=== PATIENT | female | born 1965 | race Caucasian/White ===

== ENCOUNTER 2017-06-14 12:04 | Emergency (ER) | payer MEDICARE ==
[2017-06-14] MEDS ORDERED: IPRATROPIUM/ALBUTEROL 0.5-2.5 MG/3 ML AMPUL NEB ONE (12:52)
--- NOTE | 2017-06-14 12:58 | ER Document Report ---
HPI - HPI Pain Level: 3 Notes: Patient is a 51-year-old female with a history of insulin-dependent diabetes, COPD, and hypertension who presents to the ED complaining of dry semi- productive cough, intermittent "mild" wheeze, nasal congestion/discharge x 2 weeks. Patient states that she did recently moved to the area and does need her NovoLog pen prescription refilled. Patient states that she has been feeling well otherwise. She is eating and drinking without difficulty. She is urinating normally and having normal bowel movements. Patient states that she is ambulatory without any dyspnea on exertion or any development of chest pains. Patient does have a Combivent inhaler at home which she has not been using. She has no other concerns or complaints at this time. Denies any headache, fever, neck pain, sore throat, chest pain, palpitations, syncope, shortness of breath, dyspnea, abdominal pain, nausea/vomiting/diarrhea, urinary retention, dysuria, hematuria, loss of control of bowel or bladder, numbness/ tingling, muscle paralysis/weakness, or rash. - ROS Systems Reviewed and Negative: Yes All other systems reviewed and negative - CONSTITUTIONAL Constitutional: DENIES: Fever, Chills - NEURO Neurology: REPORTS: Headache - RESPIRATORY Respiratory: REPORTS: Trouble Breathing - short of breath, Coughing Past Medical History - Social History Smoking Status: Current Every Day Smoker Chew tobacco use (# tins/day): No Frequency of alcohol use: Rare Drug Abuse: None Family History: Reviewed & Not Pertinent Patient has suicidal ideation: No Patient has homicidal ideation: No - Past Medical History Cardiac Medical History: Reports: Hx Congestive Heart Failure, Hx Hypertension Pulmonary Medical History: Reports: Hx Asthma, Hx COPD Endocrine Medical History: Reports: Hx Diabetes Mellitus Type 2 Renal/ Medical History: Denies: Hx Peritoneal Dialysis Psychiatric Medical History: Reports: Hx Depression Past Surgical History: Reports: Hx Hysterectomy Vertical Provider Document - CONSTITUTIONAL Agree With Documented VS: Yes Notes: PHYSICAL EXAMINATION: GENERAL: Well-appearing, well-nourished and in no acute distress. A&Ox4 HEAD: Atraumatic, normocephalic. EYES: Pupils equal round and reactive to light, extraocular movements intact, sclera anicteric, conjunctiva are normal. ENT: EAC clear b/l. TM's intact b/l without erythema, fluid, or perforation. Nares patent and without discharge. oropharynx mild erythema without exudates. 1+ tonsilar hypertrophy without erythema or exudate. No palatine shift. Uvula midline. No tongue protrusion. No drooling, hoarseness, or airway compromise. Moist mucous membranes. No sinus tenderness. NECK: Normal range of motion, supple without lymphadenopathy. No rigidity/ meningismus. LUNGS: scant b/l wheeze at lung base. no retractions, tachypnea, or hypoxia. HEART: Regular rate and rhythm without murmurs, rubs, gallops. ABDOMEN: Soft, nontender, nondistended abdomen. No guarding, no rebound. No masses appreciated. Normal bowel sounds present. No CVA tenderness bilaterally. NEUROLOGICAL: Normal speech, normal gait. Normal sensory, motor exams PSYCH: Normal mood, normal affect. SKIN: Warm, Dry, normal turgor, no rashes or lesions noted. - RESPIRATORY O2 Sat by Pulse Oximetry: 95 Course - Re-evaluation Re-evalutation: 06/14/17 13:25 Patient is an afebrile, well-hydrated, 51-year-old female who presents the ED with pneumonitis. Vitals are stable. PE is otherwise unremarkable. Patient has a history of COPD and diabetes. Chest x-ray was unremarkable for any acute pathology. Patient was given a breathing treatment which improved lung sounds. I will send her home with a Rx for zithromax as she cannot take levaquin. Conservative measures for symptoms otherwise. Low suspicion for any ACS, PE, pneumothorax, pericarditis, dissection, respiratory compromise, severe dehydration, sepsis, meningitis, or other systemic emergent condition at this time. Patient is aware that her condition can change from initial presentation and she needs to monitor symptoms closely and seek medical attention for any acute changes. Recommend conservative measures for symptoms. Recheck with your PCM in 3-5 days. Return to the ED with any worsening/concerning symptoms otherwise as reviewed in discharge. Patient is in agreement. NovoLog prescription refilled. - Vital Signs Vital signs: Temp Pulse Resp BP Pulse Ox 98.4 F 91 16 117/72 95 06/14/17 12:10 06/14/17 12:10 06/14/17 12:10 06/14/17 12:10 06/14/17 12:10 Discharge - Discharge Clinical Impression: Pneumonitis Condition: Stable Disposition: HOME, SELF-CARE Instructions: Family Physicians / Practices, Pneumonia ([facility]) Additional Instructions: Maintain adequate fluid intake Take meds as directed tylenol/ibuprofen as needed over the counter cold medication as needed for symptoms Humidified air may help F/u: with your PCM in 3-5 days for a recheck Return to the ED with any fever, worsening pain, chest pain, palpitations, syncope, worsening VILLA, neck pain/stiffness, shortness of breath, wheezing, drooling, trouble swallowing/breathing, abdominal pain, n/v/d, rash, or worsening/concerning symptoms otherwise. Prescriptions: Albuterol Sulfate [Proair HFA Inhalation Aerosol 8.5 gm MDI] 2 puff IH Q4H PRN # 1 mdi PRN Reason: Azithromycin [Zithromax 250 mg Tablet] 250 mg PO ASDIR PRN #6 tablet PRN Reason: Insulin Aspart [Novolog Flexpen] 10 unit SQ TID #1 ml Forms: Smoking Cessation Education Referrals: [facility] [Provider Group] - Follow up as needed [facility] [Provider Group] - Follow up as needed
--- NOTE | 2017-06-14 13:12 | RADIOLOGY REPORT (SQ) ---
EXAM DESCRIPTION: CHEST PA/LAT COMPLETED DATE/TIME: 06/14/2017 1:04 pm REASON FOR STUDY: cough, wheeze COMPARISON: None. EXAM PARAMETERS: NUMBER OF VIEWS: two views TECHNIQUE: Digital Frontal and Lateral radiographic views of the chest acquired. RADIATION DOSE: NA LIMITATIONS: Poor inspiration FINDINGS: LUNGS AND PLEURA: Increased interstitial densities left greater than right suggesting inte rstitial pneumonitis probably viral. Lungs are otherwise clear. No effusions. MEDIASTINUM AND HILAR STRUCTURES: No masses or contour abnormalities. HEART AND VASCULAR STRUCTURES: Heart normal size. No evidence for failure. BONES: No acute findings. HARDWARE: Postoperative changes in lower cervical spine OTHER: No other significant finding. IMPRESSION: Increased interstitial densities primarily on the left suggesting interstitial pneumonit is. TECHNICAL DOCUMENTATION: JOB ID: [id number] [employer]- All Rights Reserved
[2017-06-14 13:52] VITALS: BP 110/70
== END 2017-06-14 13:46 | disposition home or self-care (01) ==
LOC: ER 12:04
DX: J44.0 Chronic obstructive pulmonary disease with (acute) lower respiratory infection (principal); J18.9 Pneumonia, unspecified organism; R05 Cough; J35.1 Hypertrophy of tonsils; I10 Essential (primary) hypertension; R51 Headache; F17.200 Nicotine dependence, unspecified, uncomplicated; E11.9 Type 2 diabetes mellitus without complications; Z79.4 Long term (current) use of insulin
CPT/HCPCS: 94640; 99283; 71046; A9270; J7620

== ENCOUNTER 2017-06-19 19:36 | Emergency (ER) | payer MEDICARE ==
--- NOTE | 2017-06-19 21:24 | RADIOLOGY REPORT (SQ) ---
EXAM DESCRIPTION: CHEST PA/LAT COMPLETED DATE/TIME: 06/19/2017 9:07 pm REASON FOR STUDY: diagnosed pneumonia wednesday COMPARISON: 06/14/2017 EXAM PARAMETERS: NUMBER OF VIEWS: two views TECHNIQUE: Digital Frontal and Lateral radiographic views of the chest acquired. RADIATION DOSE: NA LIMITATIONS: none FINDINGS: LUNGS AND PLEURA: Stable pulmonary exam, again demonstrating mildly increased interstitial markings involving the lung bases. No new focal consolidation. No pneumothorax. No pleural effusi on. MEDIASTINUM AND HILAR STRUCTURES: No masses or contour abnormalities. HEART AND VASCULAR STRUCTURES: Heart normal size. No evidence for failure. BONES: No acute findings. HARDWARE: Partially imaged ACDF hardware. OTHER: No other significant finding. IMPRESSION: Stable pulmonary exam, again demonstrating mildly increased interstitial markings involv ing the left more so than right lung bases. No evidence of adverse trend. TECHNICAL DOCUMENTATION: JOB ID: [id number] [employer]- All Rights Reserved
--- NOTE | 2017-06-19 21:45 | ER Document Report ---
ED Respiratory Problem - General Chief Complaint: Cough Stated Complaint: COUGH Time Seen by Provider: 06/19/17 20:12 Mode of Arrival: Ambulatory Information source: Patient Notes: 51-year-old female presented to ED for cough congestion. She states she was seen in on Wednesday and diagnosed with pneumonia and given antibiotics. She states she finished her antibiotics and still feels the same. She states she has a productive cough with mucus. She is alert and oriented respirations are regular and even speak in full complete sentences. Her O2 sat is 98% and heart rate is 79 when I assessed her she was given a Z-Froy when she was here on Wednesday. Her x-ray showed a viral pneumonitis on Wednesday. TRAVEL OUTSIDE OF THE [place] IN LAST 30 DAYS: No - HPI Patient complains to provider of: Cough, Short of breath, Other - She has a history of CHF and has gained a lot of weight since Wednesday. She states she has pedal edema but no edema noted Onset: Last week Duration: Continuous Initiating Event: URI Quality of pain: Achy Pain Level: 2 Context: Hx asthma, Hx CHF, Smoker Cough: Nonproductive Sputum amount: None At home treatment: Bronchodilators Associated symptoms: Congestion, Cough, PND, Runny nose, Sinus pain/pressure, Other - She states she feels like her feet and ankles are swollen and she feels like when she had CHF before Similar symptoms previously: Yes Recently seen / treated by doctor: Yes - Related Data Allergies/Adverse Reactions: amoxicillin [From Augmentin] Allergy (Verified 06/19/17 19:37) ciprofloxacin [From Cipro] Allergy (Verified 06/14/17 12:07) clavulanic acid [From Augmentin] Allergy (Verified 06/19/17 19:37) lithium Allergy (Verified 06/14/17 12:07) metformin Allergy (Verified 06/14/17 12:07) naproxen Allergy (Verified 06/14/17 12:07) simvastatin [From Zocor] Allergy (Verified 06/14/17 12:07) Past Medical History - General Information source: Patient - Social History Smoking Status: Current Every Day Smoker Cigarette use (# per day): Yes Chew tobacco use (# tins/day): No Smoking Education Provided: Yes - 4 minutes Frequency of alcohol use: Rare Drug Abuse: None Family History: Reviewed & Not Pertinent Patient has suicidal ideation: No Patient has homicidal ideation: No - Past Medical History Cardiac Medical History: Reports: Hx Congestive Heart Failure, Hx Hypertension Pulmonary Medical History: Reports: Hx Asthma, Hx COPD, Hx Pneumonia EENT Medical History: Reports: None Neurological Medical History: Reports: None Endocrine Medical History: Reports: Hx Diabetes Mellitus Type 2 Renal/ Medical History: Reports: None Malignancy Medical History: Reports: None GI Medical History: Reports: None Musculoskeltal Medical History: Reports Hx Arthritis, Reports Hx Fibromyalgia, Reports Hx Musculoskeletal Deformity, Reports Hx Musculoskeletal Trauma Skin Medical History: Reports None Psychiatric Medical History: Reports: Hx Depression Traumatic Medical History: Reports: None Infectious Medical History: Reports: None Past Surgical History: Reports: Hx Hysterectomy, Hx Orthopedic Surgery - cervical fusion, carpal and cubital tunnel release Review of Systems - Review of Systems Constitutional: No symptoms reported EENT: No symptoms reported Cardiovascular: Edema - Pedal edema Respiratory: Cough, Short of breath Gastrointestinal: No symptoms reported Genitourinary: No symptoms reported Female Genitourinary: No symptoms reported Musculoskeletal: No symptoms reported Skin: No symptoms reported Hematologic/Lymphatic: No symptoms reported Neurological/Psychological: No symptoms reported -: Yes All other systems reviewed and negative Physical Exam - Vital signs Vitals: Temp Pulse Resp BP Pulse Ox 97.9 F 75 18 154/84 H 97 06/19/17 19:45 06/19/17 19:45 06/19/17 19:45 06/19/17 19:45 06/19/17 19:45 Interpretation: Normal - General General appearance: Appears well, Alert - HEENT Head: Normocephalic, Atraumatic Eyes: Normal Pupils: PERRL Ears: Normal External canal: Normal Tympanic membrane: Normal Nasal: Purulent discharge, Swelling Mouth/Lips: Normal Mucous membranes: Normal Pharynx: Post nasal drainage Neck: Normal - Respiratory Respiratory status: No respiratory distress. No: Respiratory distress, Tachypnea Chest status: Nontender Breath sounds: Nonproductive cough. No: Productive cough, Rales, Rhonchi, Stridor, Wheezing Chest palpation: Normal - Cardiovascular Rhythm: Regular Heart sounds: Normal auscultation Murmur: No - Abdominal Inspection: Normal Distension: No distension Bowel sounds: Normal Tenderness: Nontender Organomegaly: No organomegaly - Back Back: Normal, Nontender - Extremities General upper extremity: Normal inspection, Nontender, Normal color, Normal ROM , Normal temperature General lower extremity: Normal inspection, Nontender, Normal color, Normal ROM , Normal temperature, Normal weight bearing. No: Sirisha's sign Ankle: Normal, Nontender. No: Edema Foot: Normal, Nontender. No: Edema - Neurological Neuro grossly intact: Yes Cognition: Normal Orientation: AAOx4 [place] Coma Scale Eye Opening: Spontaneous Jhonny Coma Scale Verbal: Oriented Jhonny Coma Scale Motor: Obeys Commands [place] Coma Scale Total: 15 Speech: Normal Motor strength normal: LUE, RUE, LLE, RLE Sensory: Normal - Psychological Associated symptoms: Normal affect, Normal mood - Skin Skin Temperature: Warm Skin Moisture: Dry Skin Color: Normal Course - Re-evaluation Re-evalutation: 06/20/17 00:27 Chest x-ray shows a pneumonitis viral, shows a normal sized heart no signs or symptoms of congestive heart failure. There is no swelling to the hands feet arms or legs. Lungs are clear to auscultation no signs or symptoms of CHF. Patient is an obese woman - Vital Signs Vital signs: Temp Pulse Resp BP Pulse Ox 98.3 F 72 20 150/80 H 98 06/19/17 21:59 06/19/17 21:59 06/19/17 21:59 06/19/17 21:59 06/19/17 21:59 - Diagnostic Test Radiology reviewed: Image reviewed, Reports reviewed Discharge - Discharge Clinical Impression: Pneumonitis High blood pressure Qualifiers: Hypertension type: unspecified Qualified Code(s): I10 - Essential (primary) hypertension Condition: Stable Disposition: HOME, SELF-CARE Instructions: Family Physicians / Practices Additional Instructions: You have been diagnosed with pneumonitis Overview Pneumonitis ([id number]-AGR-[id number]) is a general term that refers to inflammation of lung tissue. Technically, pneumonia is a type of pneumonitis because the infection causes inflammation. Pneumonitis, however, is usually used by doctors to refer to noninfectious causes of lung inflammation. Common causes of pneumonitis include airborne irritants at your job or from your hobbies. In addition, some types of cancer treatments and dozens of drugs can cause pneumonitis. Difficulty breathing often accompanied by a dry (nonproductive) cough is the most common symptom of pneumonitis. Specialized tests are necessary to make a diagnosis. Treatment focuses on avoiding irritants and reducing inflammation. Symptoms The most common symptom of pneumonitis is shortness of breath, which may be accompanied by a dry cough. If pneumonitis is undetected or left untreated, you may gradually develop chronic pneumonitis, which can result in scarring ( fibrosis) in the lungs. Signs and symptoms of chronic pneumonitis include: * Shortness of breath * Cough * Fatigue * Loss of appetite * Unintentional weight loss When to call a doctor Call your doctor anytime you have difficulty breathing, no matter what might be the cause. Request an Appointment at [facility] Causes * Bronchioles and alveoli in the lungs Pneumonitis occurs when an irritating substance causes the tiny air sacs ( alveoli) in your lungs to become inflamed. This inflammation makes it difficult for oxygen to pass through the alveoli into the bloodstream. Many irritants, ranging from airborne molds to chemotherapy drugs, have been linked to pneumonitis. But for most people, the specific substance causing the inflammation is never identified. Pneumonitis causes may include: * Drugs. A variety of drugs can cause pneumonitis, including some antibiotics, several types of chemotherapy drugs and medications that keep your heartbeat regular. An overdose of aspirin can cause pneumonitis. * Molds and bacteria. Repeated exposure to some molds and bacteria can cause the lungs to become inflamed. Specific varieties of mold-related pneumonitis have received nicknames, such as "quiroz's lung" or "hot tub lung." * Birds. Exposure to feathers or bird excrement is a common cause of pneumonitis. * Radiation treatments. Some people who undergo radiation therapy to the chest, such as for breast or lung cancer, may develop pneumonitis. Pneumonitis also can occur after whole-body radiation therapy, which is needed to prepare a person for a bone marrow transplant. Risk factors Occupations or hobbies Some occupations and hobbies carry higher risks of pneumonitis, including: * Farming. Many types of farming operations expose workers to aerosolized mists and pesticides. Inhaling airborne particles from moldy hay is one of the most common causes of occupational pneumonitis. Mold particles also can be inhaled during harvests of grain and hay. * Bird handling. Poultry workers and people who breed or keep pigeons are often exposed to droppings, feathers and other materials that can cause pneumonitis. * Hot tubs and humidifiers. Moldy conditions in hot tubs can trigger pneumonitis because the bubbling action makes a mist that can be inhaled. Home humidifiers are another common reservoir for mold. Cancer treatment Some chemotherapy drugs can cause pneumonitis, as can radiation therapy to the lungs. The combination of the two increases the risk of irreversible lung disease. Complications Pneumonitis that goes unnoticed or untreated can cause irreversible lung damage. In normal lungs, the air sacs stretch and relax with each breath. Chronic inflammation of the thin tissue lining each air sac causes scarring and makes the sacs less flexible. They become stiff like a dried sponge. This is called pulmonary fibrosis. In severe cases, pulmonary fibrosis can cause right heart failure, respiratory failure and . [id number] cough and cold medicine Tylenol and Motrin as needed Keep your air humidified Maintain adequate fluid by mouth Follow-up with your primary doctor in the next 3-5 days. COUGH-SUPPRESSANT & EXPECTORANT MEDICATION: You are to use a cough medication as needed for relief of symptoms. This medicine is a combination of an expectorant (to make the mucous thinner and more easily "coughed up") and a cough suppressant (to reduce the frequency of coughing). The cough-suppressant medicine is related to narcotics. You may experience mild nausea and sleepiness. Some patients who are very sensitive to narcotics may have stomach pain from this medicine. Taking the medicine with food reduces these side effects. Do not drive or work with machinery until you know how this medicine affects you. The expectorant should have no side effects. Iodine-containing expectorants (such as organidin) should not be taken by persons with active thyroid disease unless approved by your doctor. Call the doctor if you develop shortness of breath, hives, rash, itching, lightheadedness, or severe nausea and vomiting. USE OF ACETAMINOPHEN (Tylenol): Acetaminophen may be taken for pain relief or fever control. It's much safer than aspirin, offering a wider range of "safe" dosages. It is safe during . Some brand names are Tylenol, Panadol, Datril, Anacin 3, Tempra, and Liquiprin. Acetaminophen can be repeated every four hours. The following are maximum recommended dosages: >89 pounds or adults 650 mg to 900 mg Acetaminophen can be repeated every four hours. Maximum dose not to exceed 4000 mg a day. SMOKING: If you smoke, you should stop smoking. The tar and chemicals in cigarette smoke are harmful. Smoking has been shown to cause: emphysema chronic bronchitis lung cancer mouth and throat cancer stomach and pancreas cancer premature aging defects In addition, smoking increases ear and lung infections in children of smokers. FOLLOW-UP CARE: If you have been referred to a physician for follow-up care, call the physician s office for an appointment as you were instructed or within the next two days. If you experience worsening or a significant change in your symptoms, notify the physician immediately or return to the Emergency Department at any time for re-evaluation. Forms: Elevated Blood Pressure, Smoking Cessation Education, Return to Work
[2017-06-19 22:00] VITALS: BP 150/80
== END 2017-06-19 21:59 | disposition home or self-care (01) ==
LOC: ER 19:36
DX: J18.9 Pneumonia, unspecified organism (principal); I10 Essential (primary) hypertension; R05 Cough; R09.81 Nasal congestion; R06.02 Shortness of breath; I50.9 Heart failure, unspecified; R09.89 Other specified symptoms and signs involving the circulatory and respiratory systems; F17.210 Nicotine dependence, cigarettes, uncomplicated
CPT/HCPCS: 71046; 99283

== ENCOUNTER 2017-07-23 12:37 | Emergency (ER) | payer MEDICARE ==
[2017-07-23] MEDS ORDERED: ONDANSETRON 4 MG TAB.RAPDIS PO ONE (12:46)
[2017-07-23] MEDS ORDERED: TRAMADOL HCL 50 MG TABLET PO ONE (12:46)
--- NOTE | 2017-07-23 12:48 | ER Document Report ---
ED Medical Screen (RME) - General Chief Complaint: Abdominal Pain Stated Complaint: ABDOMINAL PAIN Time Seen by Provider: 07/23/17 12:42 Notes: RME DISCLOSURE I have seen this patient as part of a Rapid Medical Evaluation and, if applicable, placed any initially appropriate orders. The patient will be seen and fully evaluated, including a full history and physical exam, by a provider ( in Main ED or Fast Track) when a room becomes available. 51-year-old female here with complaints of upper and right-sided abdominal pain. The pain has been ongoing for about 6 months now but she states that over the past 2-3 weeks, the pain has been progressively worsening and is associated with nausea vomiting and looser than normal stools. The pain is worse after eating. She has tried ibuprofen for the pain. EXAM Moderate right upper quadrant tenderness Minimal epigastric/RLQ tenderness No peritoneal signs TRAVEL OUTSIDE OF THE [place] IN LAST 30 DAYS: No - Related Data Allergies/Adverse Reactions: amoxicillin [From Augmentin] Allergy (Verified 07/23/17 12:47) ciprofloxacin [From Cipro] Allergy (Verified 07/23/17 12:47) clavulanic acid [From Augmentin] Allergy (Verified 07/23/17 12:47) lithium Allergy (Verified 07/23/17 12:47) metformin Allergy (Verified 07/23/17 12:47) naproxen Allergy (Verified 07/23/17 12:47) simvastatin [From Zocor] Allergy (Verified 07/23/17 12:47) Past Medical History - Social History Chew tobacco use (# tins/day): No Frequency of alcohol use: None Drug Abuse: None - Past Medical History Cardiac Medical History: Reports: Hx Congestive Heart Failure, Hx Hypertension Pulmonary Medical History: Reports: Hx Asthma, Hx COPD, Hx Pneumonia Endocrine Medical History: Reports: Hx Diabetes Mellitus Type 2 Renal/ Medical History: Denies: Hx Peritoneal Dialysis Musculoskeltal Medical History: Reports Hx Arthritis, Reports Hx Fibromyalgia, Reports Hx Musculoskeletal Deformity, Reports Hx Musculoskeletal Trauma Psychiatric Medical History: Reports: Hx Depression Past Surgical History: Reports: Hx Hysterectomy, Hx Orthopedic Surgery - cervical fusion, carpal and cubital tunnel release Physical Exam - Vital signs Vitals: Temp Pulse Resp BP Pulse Ox 97.9 F 96 16 121/69 94 07/23/17 12:42 07/23/17 12:42 07/23/17 12:42 07/23/17 12:42 07/23/17 12:42 Course - Vital Signs Vital signs: Temp Pulse Resp BP Pulse Ox 97.9 F 96 16 121/69 94 07/23/17 12:42 07/23/17 12:42 07/23/17 12:42 07/23/17 12:42 07/23/17 12:42
[2017-07-23 13:24] LABS: ABSOLUTE BASOPHILS # (AUTO) 0.1 10^3/uL (0.0-0.2); ABSOLUTE EOSINOPHILS # (AUTO) 0.2 10^3/uL (0.0-0.6); ABSOLUTE LYMPHOCYTES (AUTO) 2.3 10^3/uL (0.5-4.7); ABSOLUTE MONOCYTES (AUTO) 0.5 10^3/uL (0.1-1.4); ABSOLUTE NEUT (AUTO) 8.2 10^3/uL (1.7-8.2); BASOPHILS % (AUTO) 0.7 % (0-2); EOSINOPHILS % (AUTO) 1.9 % (0-6); HEMATOCRIT 42.5 % (36.0-47.0); HEMOGLOBIN 14.4 g/dL (12.0-15.5); LYMPHOCYTES % (AUTO) 20.4 % (13-45); MEAN CORPUSCULAR HEMOGLOBIN 29.2 pg (27.0-33.4); MEAN CORPUSCULAR VOLUME 86 fl (80-97); MONOCYTES % (AUTO) 4.1 % (3-13); PLATELET COUNT 271 10^3/uL (150-450); RED BLOOD COUNT 4.95 10^6/uL (3.72-5.28); RED CELL DISTRIBUTION WIDTH 13.7 % (11.5-14.0); SEGMENTED NEUTROPHILS % (AUTO) 72.9 % (42-78); TOTAL CELLS COUNTED % (AUTO) 100 %; WHITE BLOOD COUNT 11.3 10^3/uL (4.0-10.5)
[2017-07-23 13:37] LABS: APPEARANCE,URINE SLIGHTLY-CLOUDY; BILIRUBIN,URINE NEGATIVE (NEGATIVE); COLOR,URINE YELLOW; GLUCOSE, URINE 150 mg/dL (NEGATIVE); KETONES,URINE NEGATIVE (NEGATIVE); LEUKOCYTE ESTERASE,URINE NEGATIVE (NEGATIVE); NITRITE,URINE NEGATIVE (NEGATIVE); PROTEIN,URINE NEGATIVE (NEGATIVE); URINE SPECIFIC GRAVITY 1.019; UROBILINOGEN,URINE NEGATIVE mg/dL (<2.0)
[2017-07-23 13:45] LABS: ALANINE AMINOTRANSFERASE 29 U/L (9-52); ALBUMIN 4.6 g/dL (3.5-5.0); ALKALINE PHOSPHATASE 73 U/L (38-126); ANION GAP 14 (5-19); ASPARTATE AMINO TRANSFERASE 23 U/L (14-36); BILIRUBIN,DIRECT 0.2 mg/dL (0.0-0.4); BILIRUBIN,TOTAL 0.2 mg/dL (0.2-1.3); BLOOD UREA NITROGEN 20 mg/dL (7-20); CALCIUM 10.1 mg/dL (8.4-10.2); CARBON DIOXIDE 24 mmol/L (22-30); CHLORIDE 97 mmol/L (98-107); GLUCOSE 277 mg/dL (75-110); LIPASE 217.4 U/L (23-300); POTASSIUM 4.4 mmol/L (3.6-5.0); TOTAL PROTEIN 7.3 g/dL (6.3-8.2)
--- NOTE | 2017-07-23 14:58 | ER Document Report ---
ED General - General Chief Complaint: Abdominal Pain Stated Complaint: ABDOMINAL PAIN Time Seen by Provider: 07/23/17 12:42 Notes: 51-year-old lady with obesity and IBS presents with ongoing abdominal pain, getting worse for several weeks described as upper right greater than left associated with bloating. She has been having "a flareup" of her IBS consisting of diarrhea as well. Denies fever chills has been eating. She has been vomiting off and on for a few weeks to the point where she feels like she is vomiting acid. TRAVEL OUTSIDE OF THE [place] IN LAST 30 DAYS: No - Related Data Allergies/Adverse Reactions: amoxicillin [From Augmentin] Allergy (Verified 07/23/17 12:47) ciprofloxacin [From Cipro] Allergy (Verified 07/23/17 12:47) clavulanic acid [From Augmentin] Allergy (Verified 07/23/17 12:47) lithium Allergy (Verified 07/23/17 12:47) metformin Allergy (Verified 07/23/17 12:47) naproxen Allergy (Verified 07/23/17 12:47) simvastatin [From Zocor] Allergy (Verified 07/23/17 12:47) Past Medical History - Social History Smoking Status: Current Some Day Smoker Chew tobacco use (# tins/day): No Frequency of alcohol use: None Drug Abuse: None Family History: Reviewed & Not Pertinent Patient has suicidal ideation: No Patient has homicidal ideation: No - Past Medical History Cardiac Medical History: Reports: Hx Congestive Heart Failure, Hx Hypertension Pulmonary Medical History: Reports: Hx Asthma, Hx COPD, Hx Pneumonia Endocrine Medical History: Reports: Hx Diabetes Mellitus Type 2 Renal/ Medical History: Denies: Hx Peritoneal Dialysis Musculoskeltal Medical History: Reports Hx Arthritis, Reports Hx Fibromyalgia, Reports Hx Musculoskeletal Deformity, Reports Hx Musculoskeletal Trauma Psychiatric Medical History: Reports: Hx Depression Past Surgical History: Reports: Hx Hysterectomy, Hx Orthopedic Surgery - cervical fusion, carpal and cubital tunnel release Review of Systems - Review of Systems Notes: REVIEW OF SYSTEMS GEN: Denies fever, chills, weight loss ENT: Denies sore throat, nasal discharge, ear pain EYES: Denies blurry vision, eye pain, discharge CV: Denies chest pain, palpitations, edema RESP: Denies cough, shortness of breath, wheezing GI: Diarrhea vomiting abdominal pain and bloating MSK: Denies joint pain/swelling, edema, SKIN: Denies rash, skin lesions LYMPH: Denies swollen glands/lymph nodes NEURO: Denies headache, focal weakness or numbness, dizziness PSYCH: Denies depression, suicidal or homicidal ideation PHYSICAL EXAMINATION General: No acute distress, well-nourished Head: Atraumatic, normocephalic ENT: Mouth normal, oropharynx moist, no exudates or tonsillar enlargement Eyes: Conjunctiva normal, pupils equal, lids normal Neck: No JVD, supple, no guarding CVS: Normal rate, regular rhythm, no murmurs Resp: No resp distress, equal and normal breath sounds bilaterally GI: Nondistended, soft, right-sided abdominal tenderness upper greater than lower to palpation, no rebound or guarding Ext: No deformities, no edema, normal range of motion in upper and lower ext Back: No CVA or midline TTP Skin: No rash, warm Lymphatic: No lymphadeopathy noted Neuro: Awake, alert. Face symmetric. GCS 15. Physical Exam - Vital signs Vitals: Temp Pulse Resp BP Pulse Ox 97.9 F 96 16 121/69 94 07/23/17 12:42 07/23/17 12:42 07/23/17 12:42 07/23/17 12:42 07/23/17 12:42 Course - Re-evaluation Re-evalutation: 07/23/17 16:54 Subacute abdominal pain with nausea and a history of IBS. Minimal tenderness. Normal vitals. [place] includes reflux gastritis less likely perforation, also gallbladder disease. Labs were done at triage and are normal. Ultrasound shows fatty liver but normal gallbladder. CT was done as well to evaluate for further pathology and showed only an incidental ovarian cyst. Patient is feeling good tolerating p.o. in the ED will be discharged with acid reduction and follow-up with GI Dr. Del Castillo. I have discussed with the patient there likely diagnosis, aftercare plan, follow -up plans and my usual and customary return precautions. They verbalized understanding of this. - Vital Signs Vital signs: Temp Pulse Resp BP Pulse Ox 97.9 F 96 16 121/69 94 07/23/17 12:42 07/23/17 12:42 07/23/17 12:42 07/23/17 12:42 07/23/17 12:42 - Laboratory Result Diagrams: 07/23/17 12:55 07/23/17 12:55 Laboratory results interpreted by me: 07/23/17 07/23/17 07/23/17 12:55 12:55 12:55 WBC 11.3 H Sodium 135.0 L Chloride 97 L Glucose 277 H Urine Glucose (UA) 150 H - Diagnostic Test Radiology reviewed: Image reviewed, Reports reviewed Discharge - Discharge Clinical Impression: Abdominal pain Qualifiers: Abdominal location: unspecified location Qualified Code(s): R10.9 - Unspecified abdominal pain Condition: Good Disposition: HOME, SELF-CARE Instructions: Abdominal Pain ([facility]) Prescriptions: Ondansetron [Zofran Odt 4 mg Tablet] 1 - 2 tab PO Q4H PRN #15 tab.rapdis PRN Reason: For Nausea/Vomiting
--- NOTE | 2017-07-23 15:13 | RADIOLOGY REPORT (SQ) ---
EXAM DESCRIPTION: U/S ABDOMEN LIMITED W/O DOP COMPLETED DATE/TIME: 07/23/2017 3:04 pm REASON FOR STUDY: RUQ pain after eating; eval gallbladder COMPARISON: None. TECHNIQUE: Dynamic and static grayscale images acquired of the right upper quadrant and recorded on PACS. Additional selected color Doppler and spectral images recorded. LIMITATIONS: Study limited due to acoustical interference from fat or from air in the bowel. FINDINGS: PANCREAS: Obscured. LIVER: Echotexture is coarse with increased echogenicity consistent with fatty infiltration. Limited penetration due to marked fatty infiltration. No masses. LIVER VASCULATURE: Normal directional flow of the main portal vein and hepatic veins. GALLBLADDER: No stones. Normal wall thickness. No pericholecystic fluid. ULTRASOUND-DETECTED VUONG'S SIGN: Negative. INTRAHEPATIC DUCTS AND COMMON DUCT: Obscured. INFERIOR VENA CAVA: Normal flow. AORTA: Obscured. RIGHT KIDNEY: Normal size. Normal echogenicity. No solid or suspicious masses. No hydronephrosis. No calcifications. PERITONEAL CAVITY AND RIGHT PLEURAL SPACE: No ascites or effusions. OTHER: No other significant finding. IMPRESSION: MARKED FATTY INFILTRATION OF THE LIVER. MIDLINE STRUCTURES ARE OBSCURED. UNREMARKABLE ULTRASOUND OF THE GALLBLADDER. TECHNICAL DOCUMENTATION: JOB ID: [id number] [employer]- All Rights Reserved Reading location - IP/workstation name: [email or web address]
--- NOTE | 2017-07-23 16:38 | RADIOLOGY REPORT (SQ) ---
EXAM DESCRIPTION: CT ABD/PELVIS WITH IV ONLY COMPLETED DATE/TIME: 07/23/2017 4:20 pm REASON FOR STUDY: abd pain, r/o obstr COMPARISON: None. TECHNIQUE: CT scan of the abdomen and pelvis performed using helical scanning technique with dynamic intravenous contrast injection. No oral contrast. Images reviewed with lung, soft tissue, and bone windows. Reconstructed coronal and sagittal MPR images reviewed. Delayed images for evaluation of the urinary system also acquired. All images stored on PACS. All CT scanners at this facility use dose modulation, iterative reconstruction, and/or weight based d osing when appropriate to reduce radiation dose to as low as reasonably achievable (ALARA). [facility]: Dose Right [facility]: CareDose [facility]: Dose Right [facility]: Teradose 4D [facility]: [employer] CONTRAST TYPE AND DOSE: contrast/concentration: Isovue 370.00 mg/ml; Total Contrast Delivered: 100.0 ml; Total Saline Delivered: 45.0 ml RENAL FUNCTION: BUN 20 creatinine 1.0 RADIATION DOSE: CT Rad equipment meets quality standard of care and radiation dose reduction techniq ues were employed. CTDIvol: 20.3 - 21.1 mGy. DLP: 2214 mGy-cm.. LIMITATIONS: None. FINDINGS: LOWER CHEST: No significant findings. No nodules or infiltrates. LIVER: Steatosis. Normal size. No masses. No dilated ducts. SPLEEN: Normal size. No focal lesions. PANCREAS: No masses. No significant calcifications. No adjacent inflammation or peripancreatic fluid collections. Pancreatic duct not dilated. GALLBLADDER: No identified stones by CT criteria. No inflammatory changes to suggest cholecystitis. ADRENAL GLANDS: No significant masses or asymmetry. RIGHT KIDNEY AND URETER: No solid masses. No significant calcifications. No hydronephrosis or hyd roureter. LEFT KIDNEY AND URETER: No solid masses. No significant calcifications. No hydronephrosis or hydr oureter. AORTA AND VESSELS: No aneurysm. No dissection. Renal arteries, SMA, celiac without stenosis. RETROPERITONEUM: No retroperitoneal adenopathy, hemorrhage or masses. BOWEL AND PERITONEAL CAVITY: No masses or inflammatory changes. No free fluid or peritoneal masses. APPENDIX: Normal. PELVIS: 5.5 x 3 cm cyst left ovary. No free fluid. ABDOMINAL WALL: No masses. No hernias. BONES: No significant or acute findings. OTHER: No other significant finding. IMPRESSION: No obstruction. Left ovarian cyst. TECHNICAL DOCUMENTATION: JOB ID: [id number] Quality ID # [id number]: Final reports with documentation of one or more dose reduction techniques (e.g., Au tomated exposure control, adjustment of the mA and/or kV according to patient size, use of iterative reconstruction technique) 2010 [email or web address]- All Rights Reserved Reading location - IP/workstation name: [email or web address]
[2017-07-23 17:05] VITALS: BP 100/63
== END 2017-07-23 17:05 | disposition home or self-care (01) ==
LOC: ER 12:37
DX: R10.9 Unspecified abdominal pain (principal); R10.11 Right upper quadrant pain; E66.9 Obesity, unspecified; K58.9 Irritable bowel syndrome, unspecified; R14.0 Abdominal distension (gaseous); I50.9 Heart failure, unspecified; I10 Essential (primary) hypertension; F17.200 Nicotine dependence, unspecified, uncomplicated
CPT/HCPCS: 99284; 36415; 83690; 85025; 80053; 81001; 76705; 74177; A9270 ×2; S0119

== ENCOUNTER 2017-08-16 18:48 | Emergency (ER) | payer MEDICARE ==
--- NOTE | 2017-08-16 19:33 | ER Document Report ---
ED Medical Screen (RME) - General Chief Complaint: Abdominal Pain Stated Complaint: VOMITING,FEVER,ABDOMINAL PAIN Time Seen by Provider: 08/16/17 19:31 TRAVEL OUTSIDE OF THE [place] IN LAST 30 DAYS: No - HPI Notes: 08/16/17 19:33 History of IBS with increased abdominal pain belching nausea vomiting diarrhea back pain urinary difficulties - Related Data Allergies/Adverse Reactions: ciprofloxacin [From Cipro] Allergy (Verified 08/16/17 18:49) lithium Allergy (Verified 08/16/17 18:49) metformin Allergy (Verified 08/16/17 18:49) naproxen Allergy (Verified 08/16/17 18:49) simvastatin [From Zocor] Allergy (Verified 08/16/17 18:49) clavulanic acid [From Augmentin] Adverse Reaction (Verified 08/16/17 18:49) Past Medical History - Social History Chew tobacco use (# tins/day): No Frequency of alcohol use: Social Drug Abuse: None - Past Medical History Cardiac Medical History: Reports: Hx Congestive Heart Failure, Hx Hypertension Pulmonary Medical History: Reports: Hx Asthma, Hx COPD, Hx Pneumonia Endocrine Medical History: Reports: Hx Diabetes Mellitus Type 2 Renal/ Medical History: Denies: Hx Peritoneal Dialysis Musculoskeltal Medical History: Reports Hx Arthritis, Reports Hx Fibromyalgia, Reports Hx Musculoskeletal Deformity, Reports Hx Musculoskeletal Trauma Psychiatric Medical History: Reports: Hx Depression Past Surgical History: Reports: Hx Hysterectomy, Hx Orthopedic Surgery - cervical fusion, carpal and cubital tunnel release Review of Systems - Review of Systems Constitutional: Other - Multiple complaints Physical Exam - Vital signs Vitals: Temp Pulse Resp BP Pulse Ox 98.3 F 90 16 119/76 95 08/16/17 18:58 08/16/17 18:58 08/16/17 18:58 08/16/17 18:58 08/16/17 18:58 - Respiratory Respiratory status: No respiratory distress Chest status: Nontender Breath sounds: Normal Chest palpation: Normal Course - Vital Signs Vital signs: Temp Pulse Resp BP Pulse Ox 98.3 F 90 16 119/76 95 08/16/17 18:58 08/16/17 18:58 08/16/17 18:58 08/16/17 18:58 08/16/17 18:58
[2017-08-16] MEDS ORDERED: DICYCLOMINE HCL 20 MG TABLET PO ONE (19:34)
[2017-08-16] MEDS ORDERED: ONDANSETRON 4 MG TAB.RAPDIS PO ONE (19:34)
[2017-08-16] MEDS ORDERED: NORMAL SALINE 1000 ML 1,000 ML IV ONE (20:09)
[2017-08-16] MEDS ORDERED: HALOPERIDOL LACTATE INJ 5 MG/1 ML VIAL IV ONE (20:09)
[2017-08-16 20:10] LABS: APPEARANCE,URINE CLEAR; BILIRUBIN,URINE NEGATIVE (NEGATIVE); COLOR,URINE STRAW; GLUCOSE, URINE NEGATIVE (NEGATIVE); KETONES,URINE NEGATIVE (NEGATIVE); LEUKOCYTE ESTERASE,URINE NEGATIVE (NEGATIVE); NITRITE,URINE NEGATIVE (NEGATIVE); PROTEIN,URINE NEGATIVE (NEGATIVE); URINE SPECIFIC GRAVITY 1.008; UROBILINOGEN,URINE NEGATIVE mg/dL (<2.0)
[2017-08-16 20:48] LABS: ABSOLUTE BASOPHILS # (AUTO) 0.1 10^3/uL (0.0-0.2); ABSOLUTE EOSINOPHILS # (AUTO) 0.4 10^3/uL (0.0-0.6); ABSOLUTE LYMPHOCYTES (AUTO) 3.3 10^3/uL (0.5-4.7); ABSOLUTE MONOCYTES (AUTO) 0.7 10^3/uL (0.1-1.4); ABSOLUTE NEUT (AUTO) 10.6 10^3/uL (1.7-8.2); EOSINOPHILS % (AUTO) 2.5 % (0-6); HEMATOCRIT 43.3 % (36.0-47.0); HEMOGLOBIN 14.8 g/dL (12.0-15.5); LYMPHOCYTES % (AUTO) 21.9 % (13-45); MEAN CORPUSCULAR HEMOGLOBIN 29.6 pg (27.0-33.4); MEAN CORPUSCULAR HGB CONC 34.1 g/dL (32.0-36.0); MEAN CORPUSCULAR VOLUME 87 fl (80-97); MONOCYTES % (AUTO) 4.8 % (3-13); PLATELET COUNT 276 10^3/uL (150-450); RED BLOOD COUNT 4.99 10^6/uL (3.72-5.28); RED CELL DISTRIBUTION WIDTH 14.1 % (11.5-14.0); SEGMENTED NEUTROPHILS % (AUTO) 69.8 % (42-78); TOTAL CELLS COUNTED % (AUTO) 100 %; WHITE BLOOD COUNT 15.2 10^3/uL (4.0-10.5)
--- NOTE | 2017-08-16 20:56 | ER Document Report ---
ED General - General Chief Complaint: Abdominal Pain Stated Complaint: VOMITING,FEVER,ABDOMINAL PAIN Time Seen by Provider: 08/16/17 19:31 Notes: Patient is a 51-year-old female with past history of irritable bowel syndrome and chronic abdominal pain who presents with several days of generalized, intermittent, cramping abdominal pain that sometimes goes into her low back. She states that this does feel similar to flares of her IBS in the past. She admits to multiple dietary changes this weekend which may have contributed to the onset of this pain. Pain is overall been unchanged since onset. Nothing improves or worsens the pain. She has not seen a primary care doctor regarding today's concerns. She was evaluated in the emergency room for similar complaints approximately 1 month ago and had a normal CT scan of abdomen pelvis and ultrasound of her outer quadrant at that time. Review of documentation from that time reports a very similar clinical history today. She denies any hematemesis, melena or hematochezia. No fever or constitutional symptoms. TRAVEL OUTSIDE OF THE [place] IN LAST 30 DAYS: No - Related Data Allergies/Adverse Reactions: ciprofloxacin [From Cipro] Allergy (Verified 08/16/17 18:49) lithium Allergy (Verified 08/16/17 18:49) metformin Allergy (Verified 08/16/17 18:49) naproxen Allergy (Verified 08/16/17 18:49) simvastatin [From Zocor] Allergy (Verified 08/16/17 18:49) clavulanic acid [From Augmentin] Adverse Reaction (Verified 08/16/17 18:49) Past Medical History - General Information source: Patient - Social History Smoking Status: Current Some Day Smoker Chew tobacco use (# tins/day): No Frequency of alcohol use: Social Drug Abuse: None Lives with: Spouse/Significant other Family History: Reviewed & Not Pertinent Patient has suicidal ideation: No Patient has homicidal ideation: No - Past Medical History Cardiac Medical History: Reports: Hx Congestive Heart Failure, Hx Hypertension Pulmonary Medical History: Reports: Hx Asthma, Hx COPD, Hx Pneumonia Endocrine Medical History: Reports: Hx Diabetes Mellitus Type 2 Renal/ Medical History: Denies: Hx Peritoneal Dialysis Musculoskeltal Medical History: Reports Hx Arthritis, Reports Hx Fibromyalgia, Reports Hx Musculoskeletal Deformity, Reports Hx Musculoskeletal Trauma Psychiatric Medical History: Reports: Hx Depression Past Surgical History: Reports: Hx Hysterectomy, Hx Orthopedic Surgery - cervical fusion, carpal and cubital tunnel release Review of Systems - Review of Systems Notes: Constitutional: Negative for fever. HENT: Negative for sore throat. Eyes: Negative for visual changes. Cardiovascular: Negative for chest pain. Respiratory: Negative for shortness of breath. Gastrointestinal: Positive for abdominal pain and nausea Genitourinary: Negative for dysuria. Musculoskeletal: Negative for back pain. Skin: Negative for rash. Neurological: Negative for headaches, weakness or numbness. 10 point ROS negative except as marked above and in HPI. Physical Exam - Vital signs Vitals: Temp Pulse Resp BP Pulse Ox 98.3 F 90 16 119/76 95 08/16/17 18:58 08/16/17 18:58 08/16/17 18:58 08/16/17 18:58 08/16/17 18:58 Interpretation: Normal Notes: PHYSICAL EXAMINATION: GENERAL: Well-appearing, well-nourished and in no acute distress. HEAD: Atraumatic, normocephalic. EYES: Pupils equal round and reactive to light, extraocular movements intact, sclera anicteric, conjunctiva are normal. ENT: nares patent, oropharynx clear without exudates. Moist mucous membranes. NECK: Normal range of motion, supple without lymphadenopathy LUNGS: Breath sounds clear to auscultation bilaterally and equal. No wheezes rales or rhonchi. HEART: Regular rate and rhythm without murmurs ABDOMEN: Soft, nontender, normoactive bowel sounds. No guarding, no rebound. No masses appreciated. EXTREMITIES: Normal range of motion, no pitting or edema. No cyanosis. NEUROLOGICAL: No focal neurological deficits. Moves all extremities spontaneously and on command. PSYCH: Normal mood, normal affect. SKIN: Warm, Dry, normal turgor, no rashes or lesions noted. Course - Re-evaluation Re-evalutation: 08/16/17 20:54 Presentation of generalized, intermittent abdominal pain. Abdominal exam is benign without any focal tenderness. Vitals are normal at the time of arrival. Laboratories are unremarkable without evidence of cystitis, , hepatitis, or pancreatitis. Patient is overall very well in appearance. Based on clinical history and examination I do not suspect an acute appendicitis, tubo -ovarian abscess, related pathology, pelvic inflammatory disease, mesenteric ischemia, or pyelonephritis. Patient has chronic recurrent abdominal pain and admits that this feels very similar to her prior presentations of irritable bowel syndrome. She did have resolution of her pain after receiving haloperidol. I do not see an indication for repeat imaging of her abdomen pelvis which did happen for the same symptoms less than 1 month ago and was noted to be normal. Patient is in agreement with avoiding additional ionizing radiation imaging based studies and verbalize understanding the risks of repeated CT scans. At this time will discharge with return precautions and follow-up recommendations. Verbal discharge instructions given a the bedside and opportunity for questions given. Medication warnings reviewed. Patient is in agreement with this plan and has verbalized understanding of return precautions and the need for primary care follow-up in the next 24-72 hours. - Vital Signs Vital signs: Temp Pulse Resp BP Pulse Ox 97.6 F 81 16 143/90 H 94 08/16/17 21:14 08/16/17 21:14 08/16/17 21:14 08/16/17 21:14 08/16/17 21:14 - Laboratory Result Diagrams: 08/16/17 20:35 08/16/17 20:35 Laboratory results interpreted by me: 08/16/17 08/16/17 20:35 20:35 WBC 15.2 H RDW 14.1 H Absolute Neutrophils 10.6 H Sodium 135.4 L Est GFR (Non-Af Amer) 59 L Glucose 174 H Discharge - Discharge Clinical Impression: Generalized abdominal pain, Nausea Irritable bowel syndrome (IBS) Qualifiers: Irritable bowel syndrome type: unspecified Qualified Code(s): K58.9 - Irritable bowel syndrome without diarrhea Condition: Good Disposition: HOME, SELF-CARE Additional Instructions: You have been seen in the Emergency Department (ED) for abdominal pain. Your evaluation did not identify a clear cause of your symptoms but was generally reassuring. Please follow up with your doctor as soon as possible regarding today's emergent visit and the symptoms that are bothering you. Return to the ED if your abdominal pain worsens or fails to improve, you develop bloody vomiting, bloody diarrhea, you are unable to tolerate fluids due to vomiting, fever greater than 101, or other symptoms that concern you.
[2017-08-16 21:07] LABS: ALANINE AMINOTRANSFERASE 26 U/L (9-52); ALBUMIN 4.4 g/dL (3.5-5.0); ALKALINE PHOSPHATASE 72 U/L (38-126); ANION GAP 8 (5-19); ASPARTATE AMINO TRANSFERASE 33 U/L (14-36); BILIRUBIN,DIRECT 0.3 mg/dL (0.0-0.4); BILIRUBIN,TOTAL 0.3 mg/dL (0.2-1.3); BLOOD UREA NITROGEN 20 mg/dL (7-20); CALCIUM 9.9 mg/dL (8.4-10.2); CARBON DIOXIDE 26 mmol/L (22-30); CHLORIDE 101 mmol/L (98-107); GLUCOSE 174 mg/dL (75-110); LIPASE 108.6 U/L (23-300); POTASSIUM 4.6 mmol/L (3.6-5.0); SODIUM 135.4 mmol/L (137-145); TOTAL PROTEIN 7.6 g/dL (6.3-8.2)
[2017-08-16 21:19] VITALS: BP 143/90
== END 2017-08-16 21:20 | disposition home or self-care (01) ==
LOC: ER 18:48
DX: K58.9 Irritable bowel syndrome, unspecified (principal); R11.0 Nausea; R10.84 Generalized abdominal pain; G89.29 Other chronic pain; I10 Essential (primary) hypertension; J44.9 Chronic obstructive pulmonary disease, unspecified; E11.9 Type 2 diabetes mellitus without complications; F17.200 Nicotine dependence, unspecified, uncomplicated; Z88.1 Allergy status to other antibiotic agents; Z88.8 Allergy status to other drugs, medicaments and biological substances
CPT/HCPCS: 99284; 96361; 96374; 36415; 83690; 85025; 81025; 80053; 81001; J1630; J7030

== ENCOUNTER 2017-11-10 20:33 | Emergency (ER) | payer MEDICARE, MEDICAID ==
[2017-11-10] MEDS ORDERED: ACETAMINOPHEN 325 MG TABLET PO ONE (22:10)
--- NOTE | 2017-11-10 22:12 | ER Document Report ---
ED Medical Screen (RME) - General Chief Complaint: Fall Injury Stated Complaint: FALL/NECK PAIN Time Seen by Provider: 11/10/17 22:10 Mode of Arrival: Ambulatory Information source: Patient Notes: Patient reports falling down a flight of stairs last week. Patient complains of continued neck and back pain. Patient reports bruising to the sacral area. I have greeted and performed a rapid initial assessment of this patient. A comprehensive ED assessment and evaluation of the patient, analysis of test results and completion of the medical decision making process will be conducted by additional ED providers. TRAVEL OUTSIDE OF THE [place] IN LAST 30 DAYS: No - Related Data Allergies/Adverse Reactions: ciprofloxacin [From Cipro] Allergy (Verified 11/10/17 20:35) lithium Allergy (Verified 11/10/17 20:35) metformin Allergy (Verified 11/10/17 20:35) naproxen Allergy (Verified 11/10/17 20:35) simvastatin [From Zocor] Allergy (Verified 11/10/17 20:35) clavulanic acid [From Augmentin] Adverse Reaction (Verified 11/10/17 20:35) Past Medical History - Past Medical History Cardiac Medical History: Reports: Hx Congestive Heart Failure, Hx Hypertension Pulmonary Medical History: Reports: Hx Asthma, Hx COPD, Hx Pneumonia Endocrine Medical History: Reports: Hx Diabetes Mellitus Type 2 Renal/ Medical History: Denies: Hx Peritoneal Dialysis Musculoskeltal Medical History: Reports Hx Arthritis, Reports Hx Fibromyalgia, Reports Hx Musculoskeletal Deformity, Reports Hx Musculoskeletal Trauma Psychiatric Medical History: Reports: Hx Depression Past Surgical History: Reports: Hx Hysterectomy, Hx Orthopedic Surgery - cervical fusion, carpal and cubital tunnel release Physical Exam - Vital signs Vitals: Temp Pulse Resp BP Pulse Ox 98.5 F 83 20 125/73 96 11/10/17 20:41 11/10/17 20:41 11/10/17 20:41 11/10/17 20:41 11/10/17 20:41 - Back Back: Tender - Tenderness to sacral area with overlying ecchymosis, Vertebra tenderness - Tenderness throughout the spine Course - Vital Signs Vital signs: Temp Pulse Resp BP Pulse Ox 98.5 F 83 20 125/73 96 11/10/17 20:41 11/10/17 20:41 11/10/17 20:41 11/10/17 20:41 11/10/17 20:41
--- NOTE | 2017-11-10 22:41 | RADIOLOGY REPORT (SQ) ---
EXAM DESCRIPTION: CT CERVICAL SPINE WITHOUT COMPLETED DATE/TIME: 11/10/2017 10:29 pm REASON FOR STUDY: fell down multiple stairs last week and injured her hips and neck COMPARISON: None. TECHNIQUE: Axial images acquired through the cervical spine without intravenous contrast. Images re viewed with lung, soft tissue and bone windows. Reconstructed coronal and sagittal MPR images review ed. Images stored on PACS. All CT scanners at this facility use dose modulation, iterative reconstruction, and/or weight based d osing when appropriate to reduce radiation dose to as low as reasonably achievable (ALARA). [facility]: Dose Right [facility]: CareDose [facility]: Dose Right [facility]: Teradose 4D [facility]: [employer] RADIATION DOSE: CT Rad equipment meets quality standard of care and radiation dose reduction techniq ues were employed. CTDIvol: 30.7 mGy. DLP: 595 mGy-cm. mGy. LIMITATIONS: None. FINDINGS: ALIGNMENT: Anatomic. MINERALIZATION: Normal. VERTEBRAL BODIES: No fractures or dislocation. DISCS: Disc implants at C3-4, C4-5, and C5-6. Narrowing of the C6-7 disc space. FACETS, LATERAL MASSES, POSTERIOR ELEMENTS: No fractures. No dislocation. No acute findings. HARDWARE: Anterior plate from C 4 to C6. Anterior hardware at C3-4 that is secured by screws into ea ch vertebral body. VISUALIZED RIBS: No fractures. LUNG APICES AND SOFT TISSUES: No significant or acute findings. OTHER: No other significant finding. IMPRESSION: Surgical changes with no acute abnormality. TECHNICAL DOCUMENTATION: JOB ID: [id number] Quality ID # [id number]: Final reports with documentation of one or more dose reduction techniques (e.g., Au tomated exposure control, adjustment of the mA and/or kV according to patient size, use of iterative reconstruction technique) 2010 [employer]- All Rights Reserved Reading location - IP/workstation name: [email or web address]
--- NOTE | 2017-11-10 23:16 | ER Document Report ---
ED General - General Chief Complaint: Fall Injury Stated Complaint: FALL/NECK PAIN Time Seen by Provider: 11/10/17 22:10 Mode of Arrival: Ambulatory Notes: Patient is a 52-year-old female who presents with complaints of a fall one week ago. Since then she has been very sore sore throughout her back. Pain is mostly in her neck and her low back. She denies any weakness numbness into her upper extremities that is new. She has some chronic tingling numbness in her feet which she always has and is not new or worsened. She has been able walk without difficulty. She says that she has pain mainly in the lower back and sacral area. She says right over the sacral area she does have a little bit of intermittent stinging type pain. No true numbness. No loss of bowel control. No urinary retention. No foot drop with walking. No other complaints at this time. She does have a previous history of cervical spine surgeries and a history of fibromyalgia. TRAVEL OUTSIDE OF THE [place] IN LAST 30 DAYS: No - Related Data Allergies/Adverse Reactions: ciprofloxacin [From Cipro] Allergy (Verified 11/10/17 20:35) lithium Allergy (Verified 11/10/17 20:35) metformin Allergy (Verified 11/10/17 20:35) naproxen Allergy (Verified 11/10/17 20:35) simvastatin [From Zocor] Allergy (Verified 11/10/17 20:35) clavulanic acid [From Augmentin] Adverse Reaction (Verified 11/10/17 20:35) Past Medical History - General Information source: Patient - Social History Smoking Status: Former Smoker Frequency of alcohol use: None Drug Abuse: None Family History: Reviewed & Not Pertinent Patient has suicidal ideation: No Patient has homicidal ideation: No - Past Medical History Cardiac Medical History: Reports: Hx Congestive Heart Failure, Hx Hypercholesterolemia, Hx Hypertension Pulmonary Medical History: Reports: Hx Asthma, Hx COPD, Hx Pneumonia Neurological Medical History: Reports: Hx Migraine Endocrine Medical History: Reports: Hx Diabetes Mellitus Type 2 Renal/ Medical History: Denies: Hx Peritoneal Dialysis Musculoskeltal Medical History: Reports Hx Arthritis, Reports Hx Fibromyalgia, Reports Hx Musculoskeletal Deformity, Reports Hx Musculoskeletal Trauma Psychiatric Medical History: Reports: Hx Depression Past Surgical History: Reports: Hx Section, Hx Hysterectomy, Hx Orthopedic Surgery - cervical fusion, carpal and cubital tunnel release, Hx Tonsillectomy Review of Systems - Review of Systems Notes: My Normal Review Basic REVIEW OF SYSTEMS: CONSTITUTIONAL : Denies fever, chills, or sweats. Denies recent illness. RESPIRATORY: Denies cough, cold, or chest congestion. Denies shortness of breath, difficulty breathing, or wheezing. GENITOURINARY: Denies difficulty urinating, painful urination, burning, frequency, or blood in urine. MUSCULOSKELETAL: Neck and low back pain SKIN: Denies rash or skin lesions. NEUROLOGICAL: Denies altered mental status or loss of consciousness. Denies headache. Denies weakness or paralysis or loss of use of either side. Denies problems with gait or speech. Denies acute sensory or motor loss. ALL OTHER SYSTEMS REVIEWED AND NEGATIVE. Physical Exam - Vital signs Vitals: Temp Pulse Resp BP Pulse Ox 98.5 F 83 20 125/73 96 11/10/17 20:41 11/10/17 20:41 11/10/17 20:41 11/10/17 20:41 11/10/17 20:41 - Notes Notes: General Appearance: Well nourished, alert, cooperative, no acute distress, mild obvious discomfort. Vitals: reviewed, See vital signs table. Head: no swelling or tenderness to the head Eyes: PERRL, EOMI, Conjuctiva clear Mouth: No decreasd moisture Neck: Supple, pain to palpation over mid cervical spine without any step-offs or deformities. Back: No pain to palpation of thoracic spine other than some pain over the thoracic paraspinal musculature which patient says she typically has for fibromyalgia. No midline thoracic tenderness. Pain to palpation mainly at L4- L5 over the lumbar spine. No step-offs or deformities. Extremities: strength 5/5 in all extremities, good pulses in all extremities, no swelling or tenderness in the extremities, no edema. Skin: warm, dry, appropriate color, no rash Neuro: speech clear, oriented x 3, normal affect, responds appropriately to questions. Normal gait. No foot drop. Good strength with plantar dorsiflexion against resistance. Normal patellar reflexes bilaterally. 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 Good distal sensation in all 4 extremities. Course - Re-evaluation Re-evalutation: 11/10/17 23:40 Patient looks well. She has no new neurologic deficits on exam. She is able stand and walk with a difficulty. Her x-rays and scans are ordered in triage were negative. I feel she is safe to be discharged home. I will follow-up with her orthopedic surgeon regards to her neck and back pain for reevaluation. Patient agrees with plan will be discharged home. Patient to return to ER if she has leg weakness or numbness, upper extremity weakness or numbness, loss of bowel control, urinary retention, or feels that she is worsening. Dictation of this chart was performed using voice recognition software; therefore, there may be some unintended grammatical errors. - Vital Signs Vital signs: Temp Pulse Resp BP Pulse Ox 98.5 F 83 20 125/73 96 11/10/17 20:41 11/10/17 20:41 11/10/17 20:41 11/10/17 20:41 11/10/17 20:41 Discharge - Discharge Clinical Impression: Fall Qualifiers: Encounter type: sequela Qualified Code(s): W19.XXXS - Unspecified fall, sequela Lumbar strain Qualifiers: Encounter type: initial encounter Qualified Code(s): S39.012A - Strain of muscle, fascia and tendon of lower back, initial encounter Condition: Good Disposition: HOME, SELF-CARE Additional Instructions: Please continue to take Tylenol and Ibuprofen for pain. Take the Ibuprofen with food. Please follow up with your back surgeon for reevaluation. Please return to the ER immediately if you develop loss of bowel control, inability to urinate , No weakness or numbness into your extremities, or if you have any further concerns. Prescriptions: Metaxalone [Skelaxin 800 mg Tablet] 800 mg PO ASDIR PRN #20 tablet PRN Reason:
--- NOTE | 2017-11-10 23:23 | RADIOLOGY REPORT (SQ) ---
EXAM DESCRIPTION: 1. Thoracic spine, 2 views 2. Lumbar spine, 4 views 3. Sacrum/coccyx, 2 views COMPLETED DATE/TME: 11/10/2017 22:10 CLINICAL HISTORY: 52 years, Female, fall COMPARISON: CT of the cervical spine performed same day FINDINGS: Thoracic spine: 2 views of the thoracic spine. Pedicles identified throughout. Thoracic vertebral body height and intervertebral disc height preserved. No cortical step-offs identified. No subluxation. Visualized mediastinal contents and ribs demonstrate no acute abnormalities. Anterior plate and screw fixation of the cervical spine partially visualized on this study. Mild endplate spondylosis. Lumbar spine: 4 views of the lumbar spine. 5 nonrib-bearing lumbar vertebrae. Pedicles identified throughout. Transverse processes and spinous processes appear intact. Lumbar vertebral body height and intervertebral disc height preserved. Mild endplate spondylosis. No cortical step-offs identified. No abnormalities of visualized pelvis or sacrum. Abdominal soft tissues are unremarkable. Sacrum: 2 views of the sacrum. No acute fracture or subluxation of the sacrum identified. No definite abnormalities of the coccyx identified. Visualized pelvic bones are intact. Pelvic soft tissues are unremarkable. IMPRESSION: 1. No acute abnormalities of the thoracic spine, lumbar spine, or sacrum by plain film criteria. 2. Mild degenerative spondylosis of the thoracic and lumbar spine. 2011 [email or web address]- All Rights Reserved
[2017-11-10 23:50] VITALS: BP 125/95
== END 2017-11-10 23:51 | disposition home or self-care (01) ==
LOC: ER 20:33
DX: S39.012A Strain of muscle, fascia and tendon of lower back, initial encounter (principal); M54.2 Cervicalgia; R20.0 Anesthesia of skin; M46.1 Sacroiliitis, not elsewhere classified; W19.XXXA Unspecified fall, initial encounter; Z87.891 Personal history of nicotine dependence; I10 Essential (primary) hypertension; J44.9 Chronic obstructive pulmonary disease, unspecified; E11.9 Type 2 diabetes mellitus without complications
CPT/HCPCS: 99284; 72220; 72110; 72070; 72125; A9270

== ENCOUNTER → 2018-10-05 | Outpatient (CLI) | payer MEDICARE, MEDICAID ==
--- NOTE | 2018-10-05 20:30 | XCELERA REPORT ---
[address] [address] Transthoracic Echocardiogram Report Name: MANNY SANDOVAL Age: 53 yrs Gender: Female : 1965 Patient Status: Outpatient Patient Location: RAD Study Date: 10/05/2018 08:00 AM Height: 63 in Weight: 230 lb BSA: 2.1 m2 Procedure: A two-dimensional transthoracic echocardiogram with color flow and Doppler was performed. The study was technically difficult with many images being suboptimal in quality. Reason For Study: CP History: CHEST PAIN. Ordering Physician: ELAINE RIVAS Performed By: Tamika Martinez Interpretation Summary The left ventricle is normal in size. There is normal left ventricular wall thickness. LV EF is 70% The left ventricular ejection fraction is within normal limits. Doppler measurements suggest normal left ventricular diastolic function The left ventricular wall motion is normal. There is no thrombus. No ASD,VSD,or PFO seen The right ventricle is grossly normal size. The right ventricle is not well visualized secondary to technical limitations The right atrium is normal. The left atrial size is normal. There is no evidence of mitral valve prolapse. There is no vegetation seen on the mitral valve. There is no mitral valve stenosis. There is no mitral regurgitation noted. There is no aortic valvular vegetation. There is no aortic valve stenosis There is no LVOT obstruction. No aortic regurgitation is present. There is no tricuspid stenosis. There is a trace amount of tricuspid regurgitation Unable to calculate RVSP due lack of TR jet. There is no pulmonic valvular stenosis. There is no pulmonic valvular regurgitation. The aortic root is normal size. There is no pericardial effusion. MMode/2D Measurements & Calculations RVDd: 3.2 cm LVIDd: 5.0 cm FS: 42.6 % Ao root diam: 2.1 cm IVSd: 0.75 cm LVIDs: 2.9 cm EDV(Teich): 119.8 ml Ao root area: 3.6 cm2 LVPWd: 0.86 cm ESV(Teich): 31.8 ml EF(Teich): 73.5 % Doppler Measurements & Calculations MV E max saundra: MV dec slope: Ao V2 max: LV V1 max P.2 cm/sec 687.6 cm/sec2 151.5 cm/sec 4.3 mmHg MV A max saundra: MV dec time: 0.16 secAo max PG: LV V1 max: 84.8 cm/sec 9.2 mmHg 103.9 cm/sec MV E/A: 1.3 PA V2 max: 99.7 cm/sec PA max P.0 mmHg Left Ventricle The left ventricle is normal in size. There is normal left ventricular wall thickness. LV EF is 70%. The left ventricular ejection fraction is within normal limits. Doppler measurements suggest normal left ventricular diastolic function. The left ventricular wall motion is normal. There is no thrombus. No ASD,VSD,or PFO seen. Right Ventricle The right ventricle is grossly normal size. The right ventricle is not well visualized secondary to technical limitations. Atria The right atrium is normal. The left atrial size is normal. Mitral Valve There is no evidence of mitral valve prolapse. There is no vegetation seen on the mitral valve. There is no mitral valve stenosis. There is no mitral regurgitation noted. Aortic Valve There is no aortic valvular vegetation. There is no aortic valve stenosis. There is no LVOT obstruction. No aortic regurgitation is present. Tricuspid Valve There is no tricuspid stenosis. There is a trace amount of tricuspid regurgitation. Unable to calculate RVSP due lack of TR jet. Pulmonic Valve There is no pulmonic valvular stenosis. There is no pulmonic valvular regurgitation. Great Vessels The aortic root is normal size. Effusions There is no pericardial effusion. : ELAINE RIVAS > Elaine Rivas
== END ==
LOC: RAD 07:42
PROVIDERS: ATTEND Specialist
DX: R07.9 Chest pain, unspecified (principal)
CPT/HCPCS: 93306

== ENCOUNTER 2018-10-08 13:01 | Emergency (ER) | payer MEDICARE, MEDICAID ==
[2018-10-08] MEDS ORDERED: ASPIRIN 81 MG TABLET, CHEWABLE PO ONE (13:25)
--- NOTE | 2018-10-08 14:08 | RADIOLOGY REPORT (SQ) ---
EXAM DESCRIPTION: CHEST 2 VIEWS COMPLETED DATE/TIME: 10/08/2018 1:57 pm REASON FOR STUDY: chest pain COMPARISON: 06/19/2017 EXAM PARAMETERS: NUMBER OF VIEWS: two views TECHNIQUE: Digital Frontal and Lateral radiographic views of the chest acquired. RADIATION DOSE: NA LIMITATIONS: none FINDINGS: LUNGS AND PLEURA: Minimal diffuse interstitial pulmonary opacity. MEDIASTINUM AND HILAR STRUCTURES: No masses or contour abnormalities. HEART AND VASCULAR STRUCTURES: Heart normal size. No evidence for failure. BONES: No acute findings. HARDWARE: None in the chest. OTHER: No other significant finding. IMPRESSION: Minimal diffuse bilateral interstitial pulmonary opacity, which may reflect edema and/or chronic interstitial change. There is no new airspace opacity. TECHNICAL DOCUMENTATION: JOB ID: [id number] [employer]- All Rights Reserved Reading location - IP/workstation name: [email or web address]
[2018-10-08 14:18] LABS: ABSOLUTE BASOPHILS # (AUTO) 0.1 10^3/uL (0.0-0.2); ABSOLUTE EOSINOPHILS # (AUTO) 0.2 10^3/uL (0.0-0.6); ABSOLUTE LYMPHOCYTES (AUTO) 1.8 10^3/uL (0.5-4.7); ABSOLUTE MONOCYTES (AUTO) 0.5 10^3/uL (0.1-1.4); ABSOLUTE NEUT (AUTO) 8.8 10^3/uL (1.7-8.2); ALANINE AMINOTRANSFERASE 22 U/L (9-52); ALBUMIN 4.2 g/dL (3.5-5.0); ALKALINE PHOSPHATASE 82 U/L (38-126); ANION GAP 13 (5-19); ASPARTATE AMINO TRANSFERASE 24 U/L (14-36); BASOPHILS % (AUTO) 0.6 % (0-2); BILIRUBIN,DIRECT 0.3 mg/dL (0.0-0.4); BILIRUBIN,TOTAL 0.3 mg/dL (0.2-1.3); BLOOD UREA NITROGEN 21 mg/dL (7-20); CALCIUM 9.9 mg/dL (8.4-10.2); CARBON DIOXIDE 28 mmol/L (22-30); CHLORIDE 99 mmol/L (98-107); EOSINOPHILS % (AUTO) 1.7 % (0-6); GLUCOSE 281 mg/dL (75-110); HEMATOCRIT 44.9 % (36.0-47.0); HEMOGLOBIN 14.7 g/dL (12.0-15.5); LYMPHOCYTES % (AUTO) 15.9 % (13-45); MEAN CORPUSCULAR HEMOGLOBIN 27.6 pg (27.0-33.4); MEAN CORPUSCULAR HGB CONC 32.7 g/dL (32.0-36.0); MEAN CORPUSCULAR VOLUME 85 fl (80-97); MONOCYTES % (AUTO) 4.8 % (3-13); PLATELET COUNT 276 10^3/uL (150-450); POTASSIUM 4.4 mmol/L (3.6-5.0); RED BLOOD COUNT 5.31 10^6/uL (3.72-5.28); RED CELL DISTRIBUTION WIDTH 14.6 % (11.5-14.0); SODIUM 139.5 mmol/L (137-145); TOTAL CELLS COUNTED % (AUTO) 100 %; TOTAL PROTEIN 7.5 g/dL (6.3-8.2); WHITE BLOOD COUNT 11.4 10^3/uL (4.0-10.5)
[2018-10-08 14:20] LABS: APPEARANCE,URINE CLEAR; BILIRUBIN,URINE NEGATIVE (NEGATIVE); COLOR,URINE STRAW; GLUCOSE, URINE >=500 mg/dL (NEGATIVE); KETONES,URINE NEGATIVE (NEGATIVE); LEUKOCYTE ESTERASE,URINE NEGATIVE (NEGATIVE); NITRITE,URINE NEGATIVE (NEGATIVE); PROTEIN,URINE NEGATIVE (NEGATIVE); UROBILINOGEN,URINE NEGATIVE mg/dL (<2.0)
[2018-10-08 14:30] LABS: CREATINE KINASE MB 1.15 ng/mL (<4.55)
[2018-10-08 14:35] LABS: TROPONIN I < 0.012 ng/mL
--- NOTE | 2018-10-08 15:02 | ER Document Report ---
ED General - General Chief Complaint: Chest Pain Stated Complaint: CHEST PAIN Time Seen by Provider: 10/08/18 13:22 Primary Care Provider: NIESHA RIVAS MD [ACTIVE STAFF] - Follow up as needed TRAVEL OUTSIDE OF THE [place] IN LAST 30 DAYS: No - HPI Patient complains to provider of: Chest pain Notes: Patient coming in for evaluation of chest pain intermittent over the last 1 to 2 weeks. Patient states left-sided does have some radiation up into her left shoulder however it is exacerbated with movement as well. Patient states recently started on CPAP. Patient states she has been on CPAP for approximately 3 years ago thinks that some of her pain was due to air trapping or swallowing too much air. Patient denies any fevers chills nausea vomiting denies a cough denies any recent travel. Patient denies any shortness of breath at this time. 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 Patient resting comfortably upon my evaluation denies any known exacerbating factor states that the chest pain is intermittent comes on by itself. Patient states theatrical scenic designer did increase her blood pressure medications patient states negative stress test many years ago. Patient also states history of GERD. Patient states compliance with all her medications. A brief review of the patient's past medical records available in [employer] was performed - Related Data Allergies/Adverse Reactions: ciprofloxacin [From Cipro] Allergy (Verified 10/08/18 13:02) lithium Allergy (Verified 10/08/18 13:02) metformin Allergy (Verified 10/08/18 13:02) naproxen Allergy (Verified 10/08/18 13:02) simvastatin [From Zocor] Allergy (Verified 10/08/18 13:02) clavulanic acid [From Augmentin] Adverse Reaction (Verified 10/08/18 13:02) Past Medical History - Social History Smoking Status: Former Smoker Family History: Reviewed & Not Pertinent Patient has suicidal ideation: No Patient has homicidal ideation: No - Past Medical History Cardiac Medical History: Reports: Hx Congestive Heart Failure, Hx Hypercholesterolemia, Hx Hypertension Pulmonary Medical History: Reports: Hx Asthma, Hx COPD, Hx Pneumonia Neurological Medical History: Reports: Hx Migraine Endocrine Medical History: Reports: Hx Diabetes Mellitus Type 2 Renal/ Medical History: Denies: Hx Peritoneal Dialysis Musculoskeletal Medical History: Reports Hx Arthritis, Reports Hx Fibromyalgia, Reports Hx Musculoskeletal Deformity, Reports Hx Musculoskeletal Trauma Psychiatric Medical History: Reports: Hx Depression Past Surgical History: Reports: Hx Section, Hx Hysterectomy, Hx Orthopedic Surgery - cervical fusion, carpal and cubital tunnel release, Hx Tonsillectomy Review of Systems - Review of Systems Constitutional: No symptoms reported EENT: No symptoms reported Cardiovascular: Chest pain Respiratory: No symptoms reported Gastrointestinal: No symptoms reported Genitourinary: No symptoms reported Female Genitourinary: No symptoms reported Musculoskeletal: No symptoms reported Skin: No symptoms reported Hematologic/Lymphatic: No symptoms reported Neurological/Psychological: No symptoms reported -: Yes All other systems reviewed and negative Physical Exam - Vital signs Vitals: Temp Pulse Resp BP Pulse Ox 98.4 F 88 18 126/68 H 94 10/08/18 13:16 10/08/18 13:16 10/08/18 13:16 10/08/18 13:16 10/08/18 13:16 Interpretation: Normal - General General appearance: Appears well, Alert - HEENT Head: Normocephalic, Atraumatic Eyes: Normal Pupils: PERRL - Respiratory Respiratory status: No respiratory distress - Patient with tenderness to palpation of the left sternal border left coracoid process left anterior chest wall and right anterior chest wall that reproduces her pain. Chest status: Nontender Breath sounds: Normal Chest palpation: Normal - Cardiovascular Rhythm: Regular Heart sounds: Normal auscultation Murmur: No - Abdominal Inspection: Normal Distension: No distension Bowel sounds: Normal Tenderness: Nontender Organomegaly: No organomegaly - Back Back: Normal, Nontender - Extremities General upper extremity: Normal inspection, Nontender, Normal color, Normal ROM, Normal temperature General lower extremity: Normal inspection, Nontender, Normal color, Normal ROM, Normal temperature, Normal weight bearing. No: Sirisha's sign - Neurological Neuro grossly intact: Yes Cognition: Normal Orientation: AAOx4 [place] Coma Scale Eye Opening: Spontaneous Jhonny Coma Scale Verbal: Oriented [place] Coma Scale Motor: Obeys Commands [place] Coma Scale Total: 15 Speech: Normal Motor strength normal: LUE, RUE, LLE, RLE Sensory: Normal - Psychological Associated symptoms: Normal affect, Normal mood - Skin Skin Temperature: Warm Skin Moisture: Dry Skin Color: Normal Course - Re-evaluation Re-evalutation: 10/08/18 15:01 Patient's EKG shows rate of 85 with a AR of 164 QRS duration of 90 QT/QTC of 376 447. She is sinus rhythm with no acute T wave inversions or ST segment elevations. 10/08/18 15:02 The patient has atypical chest pain as the patient's chest pain is not suggestive of pulmonary embolus, cardiac ischemia, aortic dissection, or other serious etiology. Given the extremely low risk of these diagnoses further testing and evaluation for these possibilities does not appear to be indicated at this time. The patient has been instructed to return if the symptoms worsen or change in any way. Patient's vital signs otherwise look to be stable. Patient chest x-ray shows possibly mild amount of edema however patient's lung sounds are clear. Do this is possible however read by the radiologist. No signs of hypoxia. Troponin is negative. Patient has a follow-up appointment next week to see her theatrical scenic designer I did recommend to the patient to keep this appointment. Due to the patient's pain do believe this may be due to her initiation of CPAP and taking a deep breath stretching her chest wall muscles and that she is diffusely tender throughout her chest wall. Patient is to return to ER symptoms worsen - Vital Signs Vital signs: Temp Pulse Resp BP Pulse Ox 98.1 F 88 15 104/71 93 10/08/18 15:42 10/08/18 13:16 10/08/18 15:42 10/08/18 15:42 10/08/18 15:42 - Laboratory Result Diagrams: 10/08/18 13:31 10/08/18 13:31 Laboratory results interpreted by me: 10/08/18 10/08/18 10/08/18 13:31 13:31 13:35 WBC 11.4 H RBC 5.31 H RDW 14.6 H Absolute Neutrophils 8.8 H BUN 21 H Est GFR (Non-Af Amer) 56 L Glucose 281 H Urine Glucose (UA) >=500 H Discharge - Discharge Clinical Impression: Chest wall pain Condition: Good Disposition: HOME, SELF-CARE Instructions: Chest Wall Pain ([facility]), Chest Pain of Unclear Cause ([facility]) Additional Instructions: Please follow-up with your theatrical scenic designer. At this time your chest x-ray and troponin and EKG did not show any acute abnormalities. Please return to the ER immediately if your chest pain worsens or symptoms change. Referrals: NIESHA RIVAS MD [ACTIVE STAFF] - Follow up as needed
[2018-10-08 15:48] VITALS: BP 104/71
--- NOTE | 2018-10-08 18:26 | EKG REPORT ---
SEVERITY:- NORMAL ECG - SINUS RHYTHM : Confirmed by: Camilla Velazquez 08-Oct-2018 18:26:16
== END 2018-10-08 15:47 | disposition home or self-care (01) ==
LOC: ER 13:01
DX: R07.89 Other chest pain (principal); M25.512 Pain in left shoulder; Z87.891 Personal history of nicotine dependence; I50.9 Heart failure, unspecified; I11.0 Hypertensive heart disease with heart failure; J44.9 Chronic obstructive pulmonary disease, unspecified; E11.9 Type 2 diabetes mellitus without complications
CPT/HCPCS: 93005; 99284; 36415; 82553; 84703; 85025; 80053; 81001; 84484; 71046; 93010; A9270

== ENCOUNTER → 2020-04-25 | Outpatient (CLI) | payer MEDICARE, MEDICAID ==
--- NOTE | 2020-04-25 13:10 | RADIOLOGY REPORT (SQ) ---
EXAM DESCRIPTION: CT CHEST WITHOUT IMAGES COMPLETED DATE/TIME: 04/25/2020 12:35 pm REASON FOR STUDY: (J44.9)CHRONIC OBSTRUCTIVE PULMONARY DISEASE, UNSPECIFIED J44.9 CHRONIC OBSTRUCTI VE PULMONARY DISEASE, UNSPECIFIED COMPARISON: Chest x-ray dated 10/08/2018 TECHNIQUE: CT scan performed of the chest without intravenous contrast. Images reviewed with lung, soft tissue and bone windows. Reconstructed coronal and sagittal MPR images reviewed. All images st ored on PACS. All CT scanners at this facility use dose modulation, iterative reconstruction, and/or weight based d osing when appropriate to reduce radiation dose to as low as reasonably achievable (ALARA). [facility]: Dose Right [facility]: CareDose [facility]: Dose Right [facility]: Teradose 4D [facility]: Smart HipLogic RADIATION DOSE: CT Rad equipment meets quality standard of care and radiation dose reduction techniq ues were employed. CTDIvol: 19.1 mGy. DLP: 773 mGy-cm. mGy. LIMITATIONS: No technical limitations. FINDINGS: LUNGS AND PLEURA: Prominent interstitial markings throughout both lung garcia. There is c entral bronchiectasis. There are patchy bilateral ground-glass opacities consistent with either pulm onary edema or atelectasis. No pleural effusions. Minimal pleural thickening. HILAR AND MEDIASTINAL STRUCTURES: No identified masses or abnormal nodes. No obvious aneurysm. HEART AND VASCULAR STRUCTURES: No aneurysm. No pericardial effusion. UPPER ABDOMEN: No significant findings. Limited exam. THYROID AND OTHER SOFT TISSUES: No masses. No adenopathy. BONES: No significant finding. HARDWARE: None in the chest. OTHER: No other significant findings. IMPRESSION: Prominent interstitial markings throughout both lung garcia with bronchiectasis. Patchy bilateral ground-glass opacities as well which could represent superimposed edema or pneumonitis. C linical correlation is needed. TECHNICAL DOCUMENTATION: JOB ID: [id number] Quality ID # [id number]: Final reports with documentation of one or more dose reduction techniques (e.g., Au tomated exposure control, adjustment of the mA and/or kV according to patient size, use of iterative reconstruction technique) 2010 [employer]- All Rights Reserved Reading location - IP/workstation name: [email or web address]
== END ==
LOC: RAD 12:22
PROVIDERS: ATTEND Internal Medicine Critical Care Medicine
DX: J44.9 Chronic obstructive pulmonary disease, unspecified (principal); J81.1 Chronic pulmonary edema
CPT/HCPCS: 71250